=== PATIENT | female | born 1990 | race Caucasian/White ===

== ENCOUNTER → 2019-05-30 10:37 | Outpatient (BNVA) | payer OTHER, SELFPAY | PROVIDERS: Family Provider Nurse Practitioner; PCP Nurse Practitioner; Visit Provider Nurse Practitioner Women's Health | DX: Z12.4 Encounter for screening for malignant neoplasm of cervix (principal); N93.9 Abnormal uterine and vaginal bleeding, unspecified; E03.9 Hypothyroidism, unspecified | CPT/HCPCS: 84146; 84443; 84702; 85027; 88175 ==

== ENCOUNTER → 2019-06-13 08:06 | Outpatient (BNVA) | payer OTHER, SELFPAY | PROVIDERS: Family Provider Nurse Practitioner; PCP Nurse Practitioner; Referring Provider Nurse Practitioner Women's Health; Visit Provider Nurse Practitioner Women's Health | DX: N93.9 Abnormal uterine and vaginal bleeding, unspecified (principal) | CPT/HCPCS: 76830 ==

== ENCOUNTER → 2019-06-21 11:08 | Outpatient (BNVA) | payer OTHER, SELFPAY | PROVIDERS: Family Provider Nurse Practitioner; PCP Nurse Practitioner; Visit Provider Internal Medicine Cardiovascular Disease | DX: E28.2 Polycystic ovarian syndrome (principal) | CPT/HCPCS: 80053 ==

== ENCOUNTER 2019-11-13 10:52 | Outpatient (CLI) | payer OTHER, SELFPAY ==
--- NOTE | 2019-11-13 11:00 | XRR_ITS ---
PROCEDURE INFORMATION: Exam: XR Cervical Spine, 2 or 3 Views Exam date and time: 11/13/2019 11:18 AM Age: 29 years old Clinical indication: Neck pain; Additional info: Chronic neck pain/headaches TECHNIQUE: Imaging protocol: XR of the cervical spine, 2 or 3 views. COMPARISON: MRI Cervical Spine w/o* [id number] 12/15/2016 11:44 AM FINDINGS: Vertebrae: Alignment is normal. posterior vertebral line and the spinal laminar line normal odontoid process normal no fracture Soft tissues: Unremarkable. Other findings: disk space height preserved XR/XR cervical spine 3V* [id number] IMPRESSION: Normal cervical spine series
--- NOTE | 2019-11-13 11:00 | XRR_ITS ---
PROCEDURE INFORMATION: Exam: XR Left Shoulder Exam date and time: 11/13/2019 11:18 AM Age: 29 years old Clinical indication: Pain; Shoulder; Left; Additional info: Chronic neck pain/l shoulder pain/headaches TECHNIQUE: Imaging protocol: XR Left shoulder. Views: 2 or more views. COMPARISON: No relevant prior studies available. FINDINGS: Bones/joints: Osseous structures of the shoulder are grossly normal. Acromioclavicular joint is without dislocation or fracture. Subacromial space height is normal. Adjacent ribs are normal. Glenohumeral joint, clavicle, acromion, and coracoid process appear grossly normal. Soft tissues: Normal. XR/XR shoulder LT min 2V* [id number] IMPRESSION: Normal shoulder.
== END 2019-11-13 10:53 | disposition home or self-care (01) ==
LOC: RAD 10:56
PROVIDERS: PCP Nurse Practitioner Family; Visit Provider Nurse Practitioner Family
DX: M54.2 Cervicalgia (principal); M25.512 Pain in left shoulder; R51 Headache
CPT/HCPCS: 72040; 73030

== ENCOUNTER 2020-10-22 08:18 | Outpatient (CLI) | payer OTHER, SELFPAY ==
--- NOTE | 2020-10-22 08:39 | XR_ITS ---
WS: [id number] RIGHT CLAVICLE 2 VIEWS HISTORY: CLAVICLE PAIN, PAIN IN RIGHT SHOULDER COMPARISON: None available. Clavicle is intact. No widening of the AC joint or elevation. Visualized upper lung field and adjacent soft tissues are normal. XR/[place] [id number] IMPRESSION: Normal RIGHT clavicle.
== END 2020-10-22 08:19 | disposition home or self-care (01) ==
PROVIDERS: PCP Nurse Practitioner Family; Visit Provider Nurse Practitioner Family
DX: M25.511 Pain in right shoulder (principal); M89.8X8 Other specified disorders of bone, other site
CPT/HCPCS: 73000

== ENCOUNTER → 2020-12-31 09:41 | Outpatient (BNVA) | payer OTHER, SELFPAY | PROVIDERS: PCP Nurse Practitioner Family; Visit Provider Nurse Practitioner Women's Health | DX: E03.9 Hypothyroidism, unspecified (principal); E28.2 Polycystic ovarian syndrome; R53.83 Other fatigue | CPT/HCPCS: 80053; 83036; 84443 ==

== ENCOUNTER → 2021-01-09 10:26 | Outpatient (BNVA) | payer OTHER, SELFPAY | PROVIDERS: PCP Nurse Practitioner Family; Visit Provider Nurse Practitioner Family | DX: Z00.00 Encounter for general adult medical examination without abnormal findings (principal) | CPT/HCPCS: 80061 ==

== ENCOUNTER 2021-06-01 09:19 | Outpatient (CLI) | payer OTHER, SELFPAY ==
[2021-06-01 09:48] LABS: Basophils # 0.1 10^3/uL (0.0-0.1); Basophils % 1.1 %; Eosinophils # 0.2 10^3/uL (0.0-0.8); Eosinophils % 1.8 %; Hematocrit 44.1 % (37.0-47.0); Hemoglobin 14.4 g/dL (11.5-15.3); Lymphocytes # 3.3 10^3/uL (0.8-4.8); Lymphocytes % 25.2 %; Mean Corpuscular HGB Conc 32.7 g/dL (30.0-36.0); Mean Corpuscular Hemoglobin 27.9 pg (28.0-34.0); Mean Corpuscular Volume 85.3 fl (81-99); Mean Platelet Volume 9.5 fL (7.4-10.4); Monocytes # 0.7 10^3/uL (0.2-0.9); Neutrophils # 8.68 10^3/uL (1.8-7.7); Neutrophils % 66.6 %; Nucleated Red Blood Cells % 0 %; Platelet Count 477 10^3/cmm (130-400); Red Blood Count 5.17 10^6/uL (4.1-5.3); Red Cell Distribution Width 13.8 % (12.1-15.1)
[2021-06-01 10:04] LABS: Erythrocyte Sedimentation Rate 21 mm/hr (0-15)
[2021-06-01 10:56] LABS: C Reactive Protein 8.1 mg/L (0.0-4.9); Ferritin 19 ng/mL (15-150); Iron 47 ug/dL (37-145); Percent Saturation 12.5 % (20-50); Thyroid Stimulating Hormone 1.74 uIU/mL (0.27-4.20); Total Iron Binding Capacity 376 mcg/dl; Unsaturated Iron Binding 329 ug/dL (112-347)
[2021-06-02 12:38] LABS: COMPLEMENT COMPONENT C3C 199 mg/dL (83-193); COMPLEMENT COMPONENT C4C 38 mg/dL (15-57)
[2021-06-02 15:12] LABS: Cyclic Citrullinated Peptide <16 UNITS
[2021-06-02 15:18] LABS: THYROID PEROXIDASE ANTIBODIES 11 IU/mL (<9)
[2021-06-02 16:38] LABS: ANA SCREEN, IFA NEGATIVE (NEGATIVE)
[2021-06-02 16:53] LABS: Anti-Double Strand DNA AB <1 IU/mL; CENTROMERE B ANTIBODY <1.0 NEG AI (<1.0 NEG); JO-1 ANTIBODY <1.0 NEG AI (<1.0 NEG); RNP ANTIBODY <1.0 NEG AI (<1.0 NEG); SCL-70 ANTIBODY <1.0 NEG AI (<1.0 NEG); SJOGREN'S ANTIBODY (SS-A) <1.0 NEG AI (<1.0 NEG); SM ANTIBODY <1.0 NEG AI (<1.0 NEG); SS-B <1.0 NEG AI (<1.0 NEG)
[2021-06-03 12:22] LABS: COMPLEMENT, TOTAL (CH50) >60 U/mL (31-60)
[2021-06-04 15:31] LABS: DNA AB (DS) CRITHIDIA,IFA NEGATIVE (NEGATIVE)
== END 2021-06-01 09:20 | disposition home or self-care (01) ==
LOC: LAB 09:21
PROVIDERS: PCP Nurse Practitioner Family; Visit Provider Nurse Practitioner Family
DX: M25.50 Pain in unspecified joint (principal); Z82.61 Family history of arthritis; Z83.49 Family history of other endocrine, nutritional and metabolic diseases; R53.83 Other fatigue; E03.9 Hypothyroidism, unspecified
CPT/HCPCS: 36415; 82728; 83540; 83550; 84443; 85025; 85651; 86140; 86160; 86162; 86200; 86225; 86235; 86255; 86376; 86431

== ENCOUNTER → 2021-10-28 09:32 | Outpatient (BNVA) | payer OTHER, SELFPAY | PROVIDERS: Visit Provider Family Medicine | DX: Z76.89 Persons encountering health services in other specified circumstances (principal); E03.9 Hypothyroidism, unspecified; R53.83 Other fatigue; R51.9 Headache, unspecified; G89.29 Other chronic pain; E28.2 Polycystic ovarian syndrome; E66.9 Obesity, unspecified; N93.9 Abnormal uterine and vaginal bleeding, unspecified | CPT/HCPCS: 80053; 84439; 84443; 85025; 85651; 86140 ==

== ENCOUNTER → 2022-01-11 17:33 | Outpatient (BNVA) | payer OTHER, SELFPAY | PROVIDERS: PCP Family Medicine; Visit Provider Family Medicine | DX: M25.531 Pain in right wrist (principal) | CPT/HCPCS: 73110 ==

== ENCOUNTER 2022-01-19 13:42 | Outpatient (CLI) | payer OTHER, SELFPAY | END 2022-01-19 13:43 | disposition home or self-care (01) | LOC: SPT 13:43 | PROVIDERS: PCP Family Medicine; Visit Provider Orthopaedic Surgery | DX: Z46.89 Encounter for fitting and adjustment of other specified devices (principal); S63.501D Unspecified sprain of right wrist, subsequent encounter; X58.XXXD Exposure to other specified factors, subsequent encounter | CPT/HCPCS: 97760; L3809 ==

== ENCOUNTER 2022-01-26 07:49 | Outpatient (CLI) | payer OTHER, SELFPAY ==
--- NOTE | 2022-01-26 08:00 | CT_ITS ---
WS: [id number] CTA HEAD AND NECK TECHNIQUE: Contrast enhanced CTA of the head and neck with coronal and sagittal reformatted images an d maximum intensity projection (MIP) images. NASCET criteria utilized. CLINICAL INFORMATION: Chronic headaches, family history of aneurysms. COMPARISON: None. DLP: 1611.[address] scans at [facility] use at least one of these dose optimization techniques: automated e xposure control; mA and/or kV adjustment per patient size (includes targeted exams where dose is matc hed to clinical indication); or iterative reconstruction. FINDINGS: No evidence of intracranial hemorrhage or mass effect. Ventricular system and basal cistern s are patent. Normal ricks-white differentiation. Mastoid air cells well aerated. Mild mucosal thicken ing LEFT maxillary sinus. Normal posterior nasopharynx. RIGHT: RIGHT common carotid artery is patent. No significant RIGHT ICA stenosis. RIGHT ICA is patent to the skull base. LEFT: LEFT common carotid artery is patent. No significant LEFT ICA stenosis. LEFT ICA is patent to t he skull base. INTRACRANIAL CTA: Both vertebral arteries are patent. No significant vertebral artery stenosis. Basilar artery is paten t. Normal vascularity to the [employer] territory bilaterally. Both ICAs are patent at the skull base. Patent anterior communicating artery. Normal vascularity to t he CHARISSE and MCA territories bilaterally. No evidence of proximal flow limiting stenosis or aneurysm. S mall LEFT A1 segment. Normal posterior nasopharynx. Normal parapharyngeal fat. No abnormalities in the RIGHT upper chest ad jacent to the palpable marker. CT/CT angio headneck* [id number] IMPRESSION: 1. No flow-limiting stenosis or aneurysm. 2. Tortuous LEFT M1 segment with mild kinking in the distal M1 segment likely developmental. No atheromatous plaque. Somewhat small LEFT A1 segment. 3. No significant carotid stenosis. 4. Otherwise unremarkable CTA head neck
[2022-01-26] MEDS: iohexol 350 mg/mL 100 mL Btl IV (08:20)
== END 2022-01-26 07:50 | disposition home or self-care (01) ==
LOC: RAD 07:49
PROVIDERS: PCP Family Medicine; Visit Provider Family Medicine
DX: R51.9 Headache, unspecified (principal)
CPT/HCPCS: 70496; 70498; Q9967

== ENCOUNTER 2022-02-18 16:32 | Outpatient (CLI) | payer OTHER, SELFPAY ==
--- NOTE | 2022-02-18 16:59 | XR_ITS ---
WS: [id number] EXAMINATION: XR foot RT 2V [id number] REASON FOR EXAM: Right foot pain over 5th MTP. COMPARISON: None available. ORDER DATE: 02/18/2022 5:00 PM TECHNIQUE: 2 views of the right foot were obtained. X-RAY FINDINGS: There are no fractures or dislocations. No focal abnormal soft tissue swelling. Joint spaces are pres erved. XR/XR foot RT 2V [id number] IMPRESSION: No fractures or dislocations of the right foot.
== END 2022-02-18 16:33 | disposition home or self-care (01) ==
PROVIDERS: PCP Family Medicine; Visit Provider Family Medicine
DX: M79.671 Pain in right foot (principal)
CPT/HCPCS: 73620

== ENCOUNTER 2022-02-19 07:17 | Outpatient (CLI) | payer OTHER, SELFPAY ==
[2022-02-19 07:56] LABS: Estmated Average Glucose 100; Hemoglobin A1C 5.1 % (4.0-6.0)
[2022-02-19 08:03] LABS: Anion Gap 16.1 (5-19); Blood Urea Nitrogen 9 mg/dL (6-20); Carbon Dioxide 21 mmol/L (22-29); Chloride 105 mmol/L (98-107); Chol HDL Ratio 3.58 mg/dL (0.0-4.40); Cholesterol 161 mg/dL (0-200); Glomerular Filtration Rate 144.9 mL/min (90-130); Glucose 101 mg/dL (65-115); HDL Cholesterol 45 mg/dL (60-100); LDL Cholesterol Calculated 106 mg/dL (50-129); LDL HDL Ratio 2.36 RATIO (0.00-3.22); Osmolality Calculated 285 mOsm/kg (285-295); Potassium 4.1 mmol/L (3.5-5.1); Sodium 138 mmol/L (136-145); Thyroid Stimulating Hormone 2.08 uIU/mL (0.27-4.20); Triglycerides 50 mg/dL (0-150)
== END 2022-02-19 07:18 | disposition home or self-care (01) ==
LOC: LAB 07:21
PROVIDERS: PCP Family Medicine; Visit Provider Family Medicine
DX: E03.9 Hypothyroidism, unspecified (principal)
CPT/HCPCS: 36415; 80048; 80061; 83036; 84439; 84443

== ENCOUNTER 2022-02-23 08:46 | Outpatient (CLI) | payer SELFPAY ==
[2022-02-23 10:31] LABS: 25 Hydroxy Vitamin D 18 ng/mL (30-100)
== END 2022-02-23 08:47 | disposition home or self-care (01) ==
PROVIDERS: PCP Family Medicine; Visit Provider Dermatology
DX: Z01.89 Encounter for other specified special examinations (principal)
CPT/HCPCS: 36415

== ENCOUNTER → 2022-03-08 10:20 | Outpatient (BNVA) | payer OTHER, SELFPAY | PROVIDERS: PCP Family Medicine | DX: J02.9 Acute pharyngitis, unspecified (principal) | CPT/HCPCS: 87880 ==

== ENCOUNTER → 2022-11-03 08:51 | Outpatient (BNVA) | payer OTHER, SELFPAY | PROVIDERS: PCP Family Medicine; Visit Provider Family Medicine | DX: E03.9 Hypothyroidism, unspecified (principal); E28.2 Polycystic ovarian syndrome; E66.9 Obesity, unspecified; K76.0 Fatty (change of) liver, not elsewhere classified; E66.01 Morbid (severe) obesity due to excess calories; Z68.42 Body mass index [BMI] 45.0-49.9, adult; J01.90 Acute sinusitis, unspecified; B96.89 Other specified bacterial agents as the cause of diseases classified elsewhere | CPT/HCPCS: 80053; 80061; 83036; 84443; 85651; 86140 ==

== ENCOUNTER 2023-06-16 09:18 | Outpatient (CLI) | payer BC, SELFPAY ==
[2023-06-16 10:02] LABS: Basophils # 0.1 10^3/uL (0.0-0.1); Basophils % 1.3 %; Eosinophils # 0.2 10^3/uL (0.0-0.8); Eosinophils % 1.7 %; Hematocrit 37.8 % (36-47); Lymphocytes % 23.2 %; Mean Corpuscular HGB Conc 32.3 g/dL (30-55); Mean Corpuscular Hemoglobin 27.2 pg (27-33); Mean Corpuscular Volume 84.4 fl (85-98); Mean Platelet Volume 9.1 fL (7.4-10.4); Monocytes # 0.5 10^3/uL (0.2-0.9); Monocytes % 5.4 %; Neutrophils # 5.92 10^3/uL (1.8-7.7); Neutrophils % 68.2 %; Nucleated Red Blood Cells % 0 %; Platelet Count 378 10^3/cmm (157-399); Red Blood Count 4.48 10^6/uL (3.85-5.65); Red Cell Distribution Width 13.8 % (12.1-15.1); White Blood Count 8.68 10^3/uL (3.29-11.43)
[2023-06-16 10:14] LABS: Erythrocyte Sedimentation Rate 20 mm/hr (0-15)
[2023-06-16 10:16] LABS: Estmated Average Glucose 94; Hemoglobin A1C 4.9 % (4.0-6.0)
[2023-06-16 10:29] LABS: Alanine Aminotransferase 15 U/L (0-33); Albumin Level 4.2 g/dL (3.5-5.2); Alkaline Phosphatase 100 U/L (35-105); Aspartate Amino Transferase 13 U/L (0-32); Blood Urea Nitrogen 8 mg/dL (6-20); C Reactive Protein 8.4 mg/L (0.0-4.9); Calcium 9.1 mg/dL (8.5-10.5); Calcium 9.3 mg/dL (8.5-10.5); Carbon Dioxide 26 mmol/L (22-29); Chloride 102 mmol/L (98-107); Chol HDL Ratio 3.47 mg/dL (0.0-4.40); Cholesterol 191 mg/dL (0-200); Cortisol Random 5.97 ug/dL (2.47-19.5); Free T4 Free Thyroxine 1.42 ng/dL (0.82-1.77); Glomerular Filtration Rate 186.2 mL/min (90-130); Glucose 92 mg/dL (65-115); HDL Cholesterol 55 mg/dL (60-100); LDL Cholesterol Calculated 111 mg/dL (50-129); LDL HDL Ratio 2.02 RATIO (0.00-3.22); Osmolality Calculated 284 mOsm/kg (285-295); Sodium 138 mmol/L (136-145); T3 Free 3.2 PG/ML (2.0-4.4); Thyroid Stimulating Hormone 2.17 uIU/mL (0.27-4.20); Total Bilirubin 0.6 mg/dL (0.15-1.2); Total Protein 7.2 g/dL (6.6-8.7); Triglycerides 125 mg/dL (0-150)
[2023-06-16 10:35] LABS: Parathyroid Hormone 47.3 pg/mL (15-65)
[2023-06-16 11:23] LABS: 25 Hydroxy Vitamin D 51 ng/mL (30-100); Vitamin B12 589 pg/mL (232-1245)
[2023-06-16 12:13] LABS: Folate Level > 20.0 ng/mL (4.8-37.3)
[2023-06-17 09:49] LABS: Creatine Phosphokinase 43 U/L (26-192)
[2023-06-17 13:14] LABS: Aldolase 4.1 U/L (< OR = 8.1)
[2023-06-17 16:14] LABS: Alternaria Alternata (M6) Ige <0.10 kU/L; Alternaria Class 0; Beef (27) IgE <0.10 kU/L; Beef Class 0; Bermuda Class 0; Bermuda Grass (G2) Ige <0.10 kU/L; Cat Dander (E1) Ige <0.10 kU/L; Cat Dander Class 0; Common Ragweed (Short) (W1) Ig <0.10 kU/L; D. Farinae Class 0; Dermatophagoides Class 0; Dermatophagoides Farinae (D2) <0.10 kU/L; Dermatophagoides Pteronyssinus <0.10 kU/L; Dog Dander (E5) Ige <0.10 kU/L; Dog Dander Class 0; Egg White (F1) Ige <0.10 kU/L; Egg White Class 0; Elm (T8) Ige <0.10 kU/L; Elm Class 0; English Plantain (W9) Ige <0.10 kU/L; English Plantain Class 0; House Dust (Greer) (H1) Ige <0.10 kU/L; House Dust (Hollister- Stier) <0.10 kU/L; House Dust Class 0; Immunoglobulin E 15 kU/L (<OR=114); Immunoglobulin E 16 kU/L (<OR=114); Johnson Grass (G10) Ige <0.10 kU/L; Johnson Grass Cl 0; June Grass Class 0; June Grass(Kentucky Blue) (G8) <0.10 kU/L; Lamb (F88) IgE <0.10 kU/L; Lamb Class 0; Lamb'S Quarters (Goose Foot) <0.10 kU/L; Lamb'S Quarters Class 0; Maize Corn Class 0; Maize/Corn (F8) Ige <0.10 kU/L; Maple (Box Elder) (T1) Ige <0.10 kU/L; Maple Class 0; Meadow Fescue (G4) Ige <0.10 kU/L; Meadow Fescue Class 0; Mucor Racemosus Class 0; Oak (T7) Ige <0.10 kU/L; Oak Class 0; Oat (F7) Ige <0.10 kU/L; Oat Class 0; Orchard Grass (Cocksfoot) (G3) <0.10 kU/L; Penicillium Class 0; Penicillium Notatum (M1) Ige <0.10 kU/L; Perennial Rye Grass (G5) Ige <0.10 kU/L; Perennial Rye Grass Class 0; Pork (F26) IgE <0.10 kU/L; Pork Class 0; Potato (F35) Ige <0.10 kU/L; Potato Class 0; Ragweeed Class 0; Rough Marsh Elder (W16) Ige <0.10 kU/L; Rough Marsh Elder Class 0; Rye (F5) Ige <0.10 kU/L; Rye Class 0; Soybean (F14) Ige <0.10 kU/L; Soybean Class 0; Sweet Vernal Class 0; Sweet Vernal Grass (G1) Ige <0.10 kU/L; Timothy Grass (G6) Ige <0.10 kU/L; Timothy Grass Class 0; Tomato (F25) Ige <0.10 kU/L; Tomato Class 0; Wheat (F4) Ige <0.10 kU/L; Wheat Class 0
[2023-06-17 16:38] LABS: Anti-Nuclear Antibody Screen NEGATIVE (NEGATIVE)
[2023-06-21 22:40] LABS: Allergen Beef Igg 31.2 mcg/mL (<2.0); Allergen Chicken Meat Igg <2.0 mcg/mL (<2.0); Allergen Orange Igg 3.6 mcg/mL (<2.0); Yeast (F45) Igg <2.0 mcg/mL (<2.0)
[2023-06-22 22:47] LABS: Galactose-alpha-1,3 IgE <0.10 kU/L (<0.10)
[2023-06-23 15:10] LABS: Aspergillus Fumigatus, Igg Ab, 64.8 mg/L (<=102)
== END 2023-06-16 09:19 | disposition home or self-care (01) ==
LOC: LAB 09:21
PROVIDERS: PCP Family Medicine; Visit Provider Family Medicine
DX: E03.9 Hypothyroidism, unspecified (principal); M25.50 Pain in unspecified joint; R53.82 Chronic fatigue, unspecified; M79.10 Myalgia, unspecified site; E55.9 Vitamin D deficiency, unspecified; R79.89 Other specified abnormal findings of blood chemistry; E28.2 Polycystic ovarian syndrome; E66.01 Morbid (severe) obesity due to excess calories; Z68.42 Body mass index [BMI] 45.0-49.9, adult
CPT/HCPCS: 36415; 80053; 80061; 82085; 82252; 82306; 82310; 82533; 82550; 82607; 82746; 82785; 83036; 83735; 83970; 84439; 84443; 84481; 85025; 85651; 86003; 86008; 86038; 86140

== ENCOUNTER → 2023-07-19 09:33 | Outpatient (BNVA) | payer BC, SELFPAY | PROVIDERS: PCP Family Medicine; Visit Provider Family Medicine | DX: M25.50 Pain in unspecified joint (principal); M79.10 Myalgia, unspecified site; E55.9 Vitamin D deficiency, unspecified; E03.9 Hypothyroidism, unspecified | CPT/HCPCS: 82252; 82550 ==

== ENCOUNTER → 2024-03-28 14:22 | Outpatient (BNVA) | payer OTHER, SELFPAY | PROVIDERS: PCP Family Medicine | DX: J03.90 Acute tonsillitis, unspecified (principal) | CPT/HCPCS: 87880 ==

== ENCOUNTER 2024-05-29 16:02 | Outpatient (CLI) | payer OTHER, SELFPAY ==
[2024-05-29 16:41] LABS: Basophils # 0.2 10^3/uL (0.0-0.1); Basophils % 1.2 %; Eosinophils # 0.3 10^3/uL (0.0-0.8); Eosinophils % 2.2 %; Hematocrit 35.1 % (36-47); Lymphocytes # 3.2 10^3/uL (0.8-4.8); Mean Corpuscular HGB Conc 32.2 g/dL (30-55); Mean Corpuscular Hemoglobin 25.5 pg (27-33); Mean Corpuscular Volume 79.2 fl (85-98); Mean Platelet Volume 9.2 fL (7.4-10.4); Monocytes # 0.7 10^3/uL (0.2-0.9); Monocytes % 5.5 %; Neutrophils # 8.52 10^3/uL (1.8-7.7); Neutrophils % 65.8 %; Nucleated Red Blood Cells % 0 %; Platelet Count 454 10^3/cmm (157-399); Red Blood Count 4.43 10^6/uL (3.85-5.65); Red Cell Distribution Width 15.1 % (12.1-15.1); White Blood Count 12.93 10^3/uL (3.29-11.43)
[2024-05-29 17:29] LABS: Estmated Average Glucose 103; Hemoglobin A1C 5.2 % (4.0-6.0)
[2024-05-29 17:35] LABS: 25 Hydroxy Vitamin D 53 ng/mL (30-100); Alanine Aminotransferase 24 U/L (0-33); Albumin Level 4.2 g/dL (3.5-5.2); Alkaline Phosphatase 100 U/L (35-105); Anion Gap 15.2 (5-19); Aspartate Amino Transferase 13 U/L (0-32); Blood Urea Nitrogen 7 mg/dL (6-20); Calcium 9.3 mg/dL (8.5-10.5); Carbon Dioxide 23 mmol/L (22-29); Chloride 103 mmol/L (98-107); Chol HDL Ratio 4.73 mg/dL (0.0-4.40); Cholesterol 208 mg/dL (0-200); Glucose 99 mg/dL (65-115); HDL Cholesterol 44 mg/dL (60-100); LDL Cholesterol Calculated 111 mg/dL (50-129); LDL HDL Ratio 2.52 RATIO (0.00-3.22); Osmolality Calculated 282 mOsm/kg (285-295); Potassium 4.2 mmol/L (3.5-5.1); Progesterone 2.67 ng/mL; Sodium 137 mmol/L (136-145); Total Bilirubin 0.2 mg/dL (0.15-1.2); Total Protein 7.2 g/dL (6.6-8.7); Triglycerides 266 mg/dL (0-150); Vitamin B12 555 pg/mL (232-1245)
[2024-05-29 21:10] LABS: Free T4 Free Thyroxine 1.11 ng/dL (0.82-1.77)
== END 2024-05-29 16:03 | disposition home or self-care (01) ==
LOC: LAB 16:05
PROVIDERS: PCP Family Medicine; Visit Provider Family Medicine
DX: E55.9 Vitamin D deficiency, unspecified (principal); E03.9 Hypothyroidism, unspecified; E28.2 Polycystic ovarian syndrome; E66.01 Morbid (severe) obesity due to excess calories; Z68.42 Body mass index [BMI] 45.0-49.9, adult; K76.0 Fatty (change of) liver, not elsewhere classified; N93.9 Abnormal uterine and vaginal bleeding, unspecified; J45.30 Mild persistent asthma, uncomplicated; R53.82 Chronic fatigue, unspecified; R79.89 Other specified abnormal findings of blood chemistry
CPT/HCPCS: 36415; 80053; 80061; 82306; 82607; 82672; 83036; 84144; 84439; 84443; 85025

== ENCOUNTER 2024-07-24 14:16 | Oncology outpatient (recurring) (ONCR) | payer OTHER, SELFPAY ==
[2024-07-24 16:25] LABS: Basophils # 0.1 10^3/uL (0.0-0.1); Basophils % 0.6 %; Eosinophils # 0.2 10^3/uL (0.0-0.8); Eosinophils % 1.6 %; Hematocrit 35.5 % (36-47); Lymphocytes # 2.9 10^3/uL (0.8-4.8); Lymphocytes % 26.7 %; Mean Corpuscular HGB Conc 31.5 g/dL (30-55); Mean Corpuscular Hemoglobin 25.2 pg (27-33); Mean Corpuscular Volume 79.8 fl (85-98); Mean Platelet Volume 9.1 fL (7.4-10.4); Monocytes # 0.5 10^3/uL (0.2-0.9); Monocytes % 4.6 %; Neutrophils # 7.18 10^3/uL (1.8-7.7); Neutrophils % 66.2 %; Nucleated Red Blood Cells % 0 %; Platelet Count 458 10^3/cmm (157-399); Red Blood Count 4.45 10^6/uL (3.85-5.65); Red Cell Distribution Width 15.6 % (12.1-15.1); Reticulocyte % 1.5 % (0.5-2.0); White Blood Count 10.85 10^3/uL (3.29-11.43)
[2024-07-24 17:14] LABS: Alanine Aminotransferase 14 U/L (0-33); Albumin Level 4.3 g/dL (3.5-5.2); Alkaline Phosphatase 105 U/L (35-105); Anion Gap 16.9 (5-19); Aspartate Amino Transferase 12 U/L (0-32); Blood Urea Nitrogen 6 mg/dL (6-20); Calcium 8.8 mg/dL (8.5-10.5); Carbon Dioxide 23 mmol/L (22-29); Chloride 103 mmol/L (98-107); Creatinine Clr Calc Pharmacy 244.6144; Ferritin 8 ng/mL (15-150); Globulin 3.2 g/dL (1.3-4.6); Glucose 81 mg/dL (65-115); Iron 25 ug/dL (37-145); Lactate Dehydrogenase 150 U/L (135-214); Osmolality Calculated 285 mOsm/kg (285-295); Percent Saturation 7.6 % (20-50); Potassium 3.9 mmol/L (3.5-5.1); Sodium 139 mmol/L (136-145); Total Bilirubin 0.2 mg/dL (0.15-1.2); Total Iron Binding Capacity 326 mcg/dl; Total Protein 7.5 g/dL (6.6-8.7); Unsaturated Iron Binding 301 ug/dL (112-347)
[2024-07-25 14:26] LABS: Leukemia Profile (BBPL) See Report
== END 2024-08-11 23:59 | disposition home or self-care (01) ==
LOC: ONCMED 14:16
PROVIDERS: PCP Family Medicine; Visit Provider Internal Medicine
DX: D72.829 Elevated white blood cell count, unspecified (principal); D75.89 Other specified diseases of blood and blood-forming organs
CPT/HCPCS: 36415; 80053; 82728; 83010; 83540; 83550; 83615; 85025; 85045; 88184; 88185

== ENCOUNTER 2024-08-23 15:51 | Oncology outpatient (recurring) (ONCR) | payer OTHER, SELFPAY ==
--- NOTE | 2024-08-15 12:55 | PC.NURSE ---
Verified with Franca Finley RN that patient had a prior auth in place for the [facility]CR ABL PCR. Per Franca there was a message in the chart from [facility] there was a authorization in place.
[2024-08-21 11:24] LABS: P190 BCR ALB1 NOT DETECTED; P190 BCR ALB1 Yes Test Yes; P210 BCR ALB1 NOT DETECTED; P210 BCR ALB1 Yes Test Yes; Prior Results NG; Source blood
== END 2024-09-10 23:59 | disposition home or self-care (01) ==
PROVIDERS: PCP Family Medicine; Visit Provider Internal Medicine
DX: Z53.9 Procedure and treatment not carried out, unspecified reason (principal)
CPT/HCPCS: 36415; 81206; 81207

== ENCOUNTER 2024-09-19 08:24 | Oncology outpatient (recurring) (ONCR) | payer OTHER, SELFPAY ==
[2024-09-19 08:54] LABS: Hematocrit 35.3 % (36-47); Hemoglobin 11.20 g/dL (11.27-16.99); Mean Corpuscular HGB Conc 31.7 g/dL (30-55); Mean Corpuscular Hemoglobin 24.8 pg (27-33); Mean Corpuscular Volume 78.1 fl (85-98); Nucleated Red Blood Cells % 0 %; Platelet Count 409 10^3/cmm (157-399); Red Blood Count 4.52 10^6/uL (3.85-5.65); White Blood Count 9.99 10^3/uL (3.29-11.43)
[2024-09-19 09:11] LABS: HCG Qualitative Urine. Negative (Negative)
[2024-09-19 09:12] LABS: Alanine Aminotransferase 11 U/L (0-33); Albumin Level 4.0 g/dL (3.5-5.2); Alkaline Phosphatase 113 U/L (35-105); Anion Gap 17.2 (5-19); Aspartate Amino Transferase 11 U/L (0-32); Blood Urea Nitrogen 6 mg/dL (6-20); Calcium 9.0 mg/dL (8.5-10.5); Carbon Dioxide 22 mmol/L (22-29); Chloride 104 mmol/L (98-107); Creatinine Clr Calc Pharmacy 239.5246; Ferritin 8 ng/mL (15-150); Globulin 3.2 g/dL (1.3-4.6); Glucose 88 mg/dL (65-115); Iron 34 ug/dL (37-145); Osmolality Calculated 285 mOsm/kg (285-295); Potassium 4.2 mmol/L (3.5-5.1); Sodium 139 mmol/L (136-145); Total Iron Binding Capacity 310 mcg/dl; Total Protein 7.2 g/dL (6.6-8.7); Unsaturated Iron Binding 276 ug/dL (112-347)
[2024-09-19] MEDS: diphenhydrAMINE 50 mg/mL SDV 1mL 25 MG IVP (10:17)
[2024-09-19] MEDS: iron dextran 975 MG in sodium chloride 0.9% 1,000 ML 250.75 MG IV (12:14)
[2024-09-19 16:45] VITALS: BP 111/75; PULSE 83; O2SAT 99
== END 2024-10-11 23:59 | disposition home or self-care (01) ==
PROVIDERS: Nurse Practitioner Family; PCP Family Medicine; Visit Provider Internal Medicine
DX: D50.9 Iron deficiency anemia, unspecified (principal); Z79.899 Other long term (current) drug therapy
CPT/HCPCS: 80053; 81025; 82728; 83540; 83550; 85025; 96365; 96366; 96375; J1200; J1750; J7030; J7040; J9999

== ENCOUNTER 2024-10-17 08:32 | Oncology outpatient (recurring) (ONCR) | payer OTHER, SELFPAY ==
[2024-10-17 09:00] LABS: Hematocrit 37.4 % (36-47); Hemoglobin 12.30 g/dL (11.27-16.99); Mean Corpuscular HGB Conc 32.9 g/dL (30-55); Mean Corpuscular Hemoglobin 26.6 pg (27-33); Mean Corpuscular Volume 80.8 fl (85-98); Nucleated Red Blood Cells % 0 %; Platelet Count 332 10^3/cmm (157-399); Red Blood Count 4.63 10^6/uL (3.85-5.65); White Blood Count 9.65 10^3/uL (3.29-11.43)
[2024-10-17 09:16] LABS: Alanine Aminotransferase 14 U/L (0-33); Albumin Level 4.1 g/dL (3.5-5.2); Alkaline Phosphatase 107 U/L (35-105); Anion Gap 15.9 (5-19); Aspartate Amino Transferase 13 U/L (0-32); Blood Urea Nitrogen 7 mg/dL (6-20); Calcium 8.7 mg/dL (8.5-10.5); Carbon Dioxide 23 mmol/L (22-29); Chloride 104 mmol/L (98-107); Creatinine Clr Calc Pharmacy 239.5246; Globulin 3.2 g/dL (1.3-4.6); Glucose 98 mg/dL (65-115); Osmolality Calculated 286 mOsm/kg (285-295); Potassium 3.9 mmol/L (3.5-5.1); Sodium 139 mmol/L (136-145); Total Protein 7.3 g/dL (6.6-8.7)
[2024-10-17] MEDS: IRON DEXTRAN IV (11:13)
[2024-10-17] MEDS: SODIUM CHLORIDE 0.9% IV (11:13)
[2024-10-17 15:47] VITALS: BP 117/74; PULSE 94; RESP 18; TEMP 36.4; O2SAT 100
== END 2024-11-11 23:59 | disposition home or self-care (01) ==
PROVIDERS: Nurse Practitioner Family; PCP Family Medicine; Visit Provider Internal Medicine
DX: D50.9 Iron deficiency anemia, unspecified (principal); Z79.899 Other long term (current) drug therapy
CPT/HCPCS: 80053; 85025; 96365; 96366; J1750; J7030; J7040; J9999

== ENCOUNTER 2024-12-05 10:55 | Oncology outpatient (recurring) (ONCR) | payer OTHER, SELFPAY ==
[2024-12-05 11:23] LABS: Hematocrit 41.1 % (36-47); Hemoglobin 14.10 g/dL (11.27-16.99); Mean Corpuscular HGB Conc 34.3 g/dL (30-55); Mean Corpuscular Hemoglobin 29.4 pg (27-33); Mean Corpuscular Volume 85.6 fl (85-98); Nucleated Red Blood Cells % 0 %; Platelet Count 378 10^3/cmm (157-399); Red Blood Count 4.80 10^6/uL (3.85-5.65); White Blood Count 12.94 10^3/uL (3.29-11.43)
[2024-12-05 11:46] LABS: Alanine Aminotransferase 14 U/L (0-33); Albumin Level 4.2 g/dL (3.5-5.2); Alkaline Phosphatase 114 U/L (35-105); Anion Gap 17.0 (5-19); Aspartate Amino Transferase 11 U/L (0-32); Blood Urea Nitrogen 8 mg/dL (6-20); Calcium 9.4 mg/dL (8.5-10.5); Carbon Dioxide 22 mmol/L (22-29); Chloride 101 mmol/L (98-107); Creatinine Clr Calc Pharmacy 236.4309; Ferritin 127 ng/mL (15-150); Globulin 3.2 g/dL (1.3-4.6); Glucose 102 mg/dL (65-115); Iron 70 ug/dL (37-145); Osmolality Calculated 281 mOsm/kg (285-295); Potassium 4.0 mmol/L (3.5-5.1); Sodium 136 mmol/L (136-145); Total Iron Binding Capacity 252 mcg/dl; Total Protein 7.4 g/dL (6.6-8.7); Unsaturated Iron Binding 182 ug/dL (112-347)
[2024-12-05 12:01] LABS: Vitamin B12 571 pg/mL (232-1245)
== END 2024-12-11 23:59 | disposition home or self-care (01) ==
PROVIDERS: Internal Medicine; PCP Family Medicine; Visit Provider Internal Medicine
DX: D50.9 Iron deficiency anemia, unspecified (principal)
CPT/HCPCS: 36415; 80053; 82607; 82728; 82746; 83540; 83550; 85025

== ENCOUNTER 2024-12-28 09:29 | Oncology outpatient (recurring) (ONCR) | payer OTHER, SELFPAY ==
--- NOTE | 2024-12-28 09:30 | MR_ITS ---
WS: [id number] EXAMINATION: MR foot RT wo con* [id number] ORDER DATE: 12/28/2024 10:06 AM COMPARISON: None. HISTORY: stress fracture CONTRAST: None. TECHNIQUE: Sagittal T1, sagittal STIR, coronal PD, coronal T2, axial T1, axial T2, and axial PD imaging with fat saturation technique. FINDINGS: Edema in the base of the third and fourth metatarsals extending into the proximal shafts. No visualized fracture lines. Hypertrophic bony changes along the proximal shaft of the fourth metatarsal extending into the intertarsal space between the third and fourth metatarsals. Fifth metatarsal base is normal in appearance. Normal cuboid. Normal bone marrow signal in the tarsal bones. First metatarsal is normal in appearance. No other acute findings. MR/MR foot RT wo con* [id number] IMPRESSION: 1. Bone marrow edema involving the proximal third and fourth metatarsal shafts . No visualized fracture clefts. Findings suspicious for contusions from repeti tive microtrauma or occult tiny stress fractures. 2. Intertarsal edema between the base of the third and fourth metatarsals with hypertrophic bony changes along the proximal fourth metatarsal shaft. 3. No other acute findings.
== END 2025-01-11 23:59 | disposition home or self-care (01) ==
LOC: ONCMED 09:30
PROVIDERS: PCP Family Medicine; Visit Provider Internal Medicine
DX: D50.9 Iron deficiency anemia, unspecified (principal); M84.376A Stress fracture, unspecified foot, initial encounter for fracture
CPT/HCPCS: 73718